=== PATIENT | male | born 1955 | race Two or more races ===

== ENCOUNTER 2019-02-10 05:01 | Inpatient (IN) | payer OTHER ==
[~2019-02-10] VITALS: Ht 180.3 cm; Wt 107.0 kg
[2019-02-10] MEDS ORDERED: ANESTHESIA TRAY IN PYXIS 1 EA TRAY MC ONE (06:28)
[2019-02-10] MEDS ORDERED: SEVOFLURANE 250 ML BOTTLE IH ONE (06:29)
[2019-02-10] MEDS ORDERED: FENTANYL PF 250MCG/5ML AMPUL ONE (06:41)
[2019-02-10] MEDS ORDERED: MIDAZOLAM HCL 2 MG/2ML VIAL ONE (06:41)
[2019-02-10] MEDS ORDERED: METOCLOPRAMIDE HCL 10 MG/2 ML VIAL ONE (06:42)
[2019-02-10] MEDS ORDERED: FAMOTIDINE/PF INJ 20 MG/2 ML VIAL IV ONE (06:42)
[2019-02-10] MEDS ORDERED: ROCURONIUM BROMIDE 50 MG/5 ML ONE (06:43)
[2019-02-10] MEDS ORDERED: MEPERIDINE HCL/PF 100 MG/ML DISP.SYRIN ONE (07:03)
[2019-02-10] MEDS ORDERED: BACITRACIN 50000 UNITS/VIAL ONE (08:08)
[2019-02-10] MEDS ORDERED: TRANEXAMIC ACID 1,000 MG in IV NS 0.9% 50 ML IV ONE ×2 (08:30→09:00)
[2019-02-10] MEDS ORDERED: FENTANYL PF 100MCG/2ML AMPUL ONE (09:29)
--- NOTE | 2019-02-10 10:05 | NUR ---
RN MSN OPENING NOTES Received patient on 2 L o2 nasal cannula with no sob or ventilatory distress noted. Patient is alert, awake and oriented. NS 0.9% IV fluids at 75 mL/hour and is flowing well. Patient states that he is not in pain, patient is lying down comfortably with no signs of pain. Vital signs WNL. Patient's call light within reach, all safety measures in place.
[2019-02-10] MEDS ORDERED: oxyCODONE/APAP (5/325 MG) 1 UDTAB TABLET PO PRN ×2 (12:00)
[2019-02-10] MEDS ORDERED: MORPHINE SULFATE INJ 4 MG/ML DISP.SYRIN IV PRN (12:00)
[2019-02-10] MEDS ORDERED: IV NS 0.9% 1,000 ML IV PRN (12:04)
[2019-02-10] MEDS ORDERED: ZOLPIDEM TARTRATE 5 MG TABLET PO PRN (12:30)
[2019-02-10] MEDS ORDERED: ACETAMINOPHEN 325 MG TABLET PO PRN (12:30)
[2019-02-10] MEDS ORDERED: ONDANSETRON HCL/PF 4 MG/2 ML VIAL IVP PRN (12:30)
[2019-02-10] MEDS ORDERED: DEXTROSE 50%-WATER 50 ML DISP.SYRIN IV PRN (12:30)
[2019-02-10] MEDS ORDERED: CLONIDINE HCL 0.1 MG TABLET PO PRN (12:30)
[2019-02-10] MEDS ORDERED: MAG HYDROX/AL HYDROX/SIMETH 30 ML UDC PO PRN (12:30)
[2019-02-10] MEDS ORDERED: INSULIN REGULAR, HUMAN 100 UNIT/ML 3 ML VIAL SQ PRN (12:30)
[2019-02-10] MEDS ORDERED: MAGNESIUM HYDROXIDE 30 ML UDC PO PRN (12:30)
[2019-02-10] MEDS ORDERED: PIOG30TA10 PO (13:24)
[2019-02-10] MEDS ORDERED: ASPI-605 PO (13:24)
[2019-02-10] MEDS ORDERED: DULO30CA2 PO (13:24)
[2019-02-10] MEDS ORDERED: SEMA0.25 SQ (13:24)
[2019-02-10] MEDS ORDERED: OMEP20CA10 PO (13:24)
[2019-02-10] MEDS ORDERED: BACL10TA PO (13:24)
[2019-02-10] MEDS ORDERED: LOSA100T31 PO (13:24)
[2019-02-10] MEDS ORDERED: FURO20TA4 PO ×2 (13:24→13:34)
[2019-02-10] MEDS ORDERED: FENO145T35 PO (13:24)
[2019-02-10] MEDS ORDERED: POTA10TA15 PO (13:24)
[2019-02-10] MEDS ORDERED: GLIP5TAB13 PO (13:24)
[2019-02-10] MEDS ORDERED: POTA20TA83 PO (13:33)
[2019-02-10] MEDS ORDERED: FURO40TA5 PO (13:33)
[2019-02-10 15:53] VITALS: BP 161/79
[2019-02-10] MEDS: ANCEF 1 GM/50 ML D5W IV SCH ×4 (16:04→23:12)
[2019-02-10] MEDS: LOSARTAN POTASSIUM 50 MG TABLET PO SCH (16:09)
[2019-02-10 16:36] LABS: CALCIUM, SERUM 8.6 mg/dL (8.5-10.1); CREATININE 1.3 mg/dL (0.6-1.3); POTASSIUM 4.5 mmol/L (3.5-5.1)
[2019-02-10] MEDS: BLOOD SUGAR DIAGNOSTIC 1 EACH STRIP IN SCH ×2 (17:45→22:15)
[2019-02-10] MEDS ORDERED: ENOXAPARIN SODIUM 40 MG/0.4 ML DISP.SYRIN SQ SCH (18:00)
--- NOTE | 2019-02-10 18:54 | NUR ---
RN MS CLOSING NOTES Patient remains on and off 2 L o2 nasal cannula. Patient is seen walking around the unit. Patient stated that he was not in pain all shift and never asked for a pain medication. Patient's call light within reach and safety measures in place.
--- NOTE | 2019-02-10 19:50 | NUR ---
MS/RN OPENING NOTES RECEIVED PATIENT IN BED, AWAKE, ALERT X3, ABLE TO VERBALIZE NEEDS, DENIES PAIN, NO GUARDING OR GRIMACE, WITH LEFT SHOULDER BRACE, HAD ORIF OF LEFT SHOULDER TODAY WITH SARAH NGUYEN/ USES URINAL BUT ABLE TO AMBULATE WITH ASSIST. WILL MONITOR, BED LOCKED, CALL LIGHTS WITHIN REACH.
[2019-02-10 19:58] VITALS: BP 129/74
[2019-02-10 20:00] VITALS: BP 129/74
[2019-02-11] MEDS: BLOOD SUGAR DIAGNOSTIC 1 EACH STRIP IN SCH (05:33)
--- NOTE | 2019-02-11 05:43 | NUR ---
MS/RN NOTES MRSA NARES SWABBED DONE. PATIENT TOLERATED PROCEDURE. PATIENT REQUESTED TO CHECK BLOOD SUGAR AT 147 , HAD A JELLO DETECTIVE CHIEF ,AMBULATORY ABLE TO WALK IN THE HALLWAY. , DENIES PAIN.
--- NOTE | 2019-02-11 06:53 | NUR ---
314-2 MS/RN NOTES PATIENT ALERT, ORIENTED X3, ABLE TO VERBNALIZE NEEDS AT ALL TIMED, MOTIVATED TO SELF CARE, ON PAIN MONITORING. SLEPT INTERMITENTLY, KEPT COMFORTABLE, ATTENDED TO NEEDS. CALL LIGHTS WITIN REACH, BED LOCKED, WILL MONITOR AND ENDORSE TO AM RN FOR SHARON.
--- NOTE | 2019-02-11 07:35 | NUR ---
RN MS OPENING NOTES Patient received on room air, no sob or ventilatory distress noted. Patients vital sign remains stable. Patient a/o x4, able to ambulate to chair and to bed without help. IVF remains at 75 ml/hour. Patient states that he has no pain at this time. Call light within reach, safety measures in place.
[2019-02-11 08:00] VITALS: BP 116/82
[2019-02-11 08:18] LABS: BASOPHILS # (AUTO) 0.1 /CMM (0.0-0.2); EOSINOPHILS % (AUTO) 2.2 % (0.0-6.0); HEMATOCRIT 43 % (39-51); HEMOGLOBIN 14.8 g/dL (13.5-17.5); LYMPHOCYTES # (AUTO) 1.5 /CMM (0.8-4.8); LYMPHOCYTES % (AUTO) 22.2 % (20.0-44.0); MEAN CORPUSCULAR HGB CONC 35 g/dl (31.0-36.0); MEAN CORPUSCULAR VOLUME 84 fL (80-96); MONOCYTES # (AUTO) 0.7 /CMM (0.1-1.30); MONOCYTES % (AUTO) 10.9 % (2.0-12.0); NEUTROPHILS # (AUTO) 4.3 /CMM (1.8-8.9); NEUTROPHILS % (AUTO) 63.7 % (43.0-81.0); PLATELET COUNT (AUTO) 247 /CMM (150-450); RED BLOOD CELL COUNT(AUTO) 5.09 MIL/uL (4.5-6.0); WHITE BLOOD COUNT (AUTO) 6.7 K/uL (4.3-11.0)
[2019-02-11 08:25] LABS: ALBUMIN 3.5 g/dL (3.4-5.0); BILIRUBIN,TOTAL 0.7 mg/dL (0.2-1.0); CALCIUM, SERUM 9.3 mg/dL (8.5-10.1); CREATININE 1.1 mg/dL (0.6-1.3); MAGNESIUM 1.9 mg/dL (1.8-2.4); PHOSPHORUS 2.8 mg/dL (2.5-4.9); POTASSIUM 3.8 mmol/L (3.5-5.1)
[2019-02-11 08:47] VITALS: BP 116/82
[2019-02-11] MEDS: LOSARTAN POTASSIUM 50 MG TABLET PO SCH (08:47)
[2019-02-11] MEDS: ANCEF 1 GM/50 ML D5W IV SCH ×2 (08:51)
[2019-02-11] MEDS ORDERED: BACLOFEN (10 MG) 10 MG TABLET PO SCH (09:00)
[2019-02-11] MEDS ORDERED: ASPIRIN EC 81 MG TABLET.DR PO SCH (09:00)
[2019-02-11] MEDS ORDERED: DULOXETINE HCL 30 MG CAPSULE.DR PO SCH (09:00)
[2019-02-11] MEDS ORDERED: FUROSEMIDE 20 MG TABLET PO SCH (09:00)
[2019-02-11] MEDS ORDERED: FENOFIBRATE NANOCRYS (145 MG) 145 MG TABLET PO SCH (09:00)
--- NOTE | 2019-02-11 14:38 | NUR ---
RN MSN CLOSING NOTES Patient is discharged with no sob or ventilatory distress noted. Patients vital sign stable, patient was picked up by his friend. Patient was free of pain when he left. All paperworks given to him, and he had no concerns or any other questions regarding his care in [place].
== END 2019-02-11 11:20 | disposition home or self-care (01) | DRG 483 ==
LOC: DS 05:01 → MED 10:30
PROVIDERS: ADMIT Nurse Practitioner Acute Care; ATTEND Student in an Organized Health Care Education/Training Program
PROC: 0RRK0J6 Replacement of Left Shoulder Joint with Synthetic Substitute, Humeral Surface, Open Approach (ICD-10-PCS; principal; 2019-02-10)
PROC: 0RPK0JZ Removal of Synthetic Substitute from Left Shoulder Joint, Open Approach (ICD-10-PCS; principal; 2019-02-10)
DX: T84.028A Dislocation of other internal joint prosthesis, initial encounter (principal); Y83.9 Surgical procedure, unspecified as the cause of abnormal reaction of the patient, or of later complication, without mention of misadventure at the time of the procedure; Y92.009 Unspecified place in unspecified non-institutional (private) residence as the place of occurrence of the external cause; I10 Essential (primary) hypertension; E11.9 Type 2 diabetes mellitus without complications; K21.9 Gastro-esophageal reflux disease without esophagitis; Z87.442 Personal history of urinary calculi; E66.9 Obesity, unspecified; Z68.32 Body mass index [BMI] 32.0-32.9, adult
CPT/HCPCS: 36415; 73020; 80048-TC; 80053-TC; 80061-TC; 82962-TC; 83735-TC; 84100-TC; 85025-TC; 86850-TC; 86921-TC; 87081-TC; A4216; A4565; A6209; A6402; G0378; J0690; J1650; J1815; J2175; J2250; J2405; J2704; J2710; J2765; J3010; J3490; J7030; J7060

== ENCOUNTER 2022-05-17 09:18 | Outpatient (CLI) | payer MEDICARE, OTHER ==
[~2022-05-17 09:18] MED LIST: ASPI-605 PO; BACL10TA PO; DULO30CA2 PO; FENO145T21 PO; FURO20TA4 PO; GLIP5TAB13 PO; LOSA100T31 PO; OMEP20CA15 PO; PIOG30TA10 PO; POTA20TA83 PO; SEMA0.25 SQ
== END 2022-05-17 23:59 | disposition home or self-care (01) ==
LOC: LAB 09:18
PROVIDERS: ATTEND Specialist
DX: Z01.812 Encounter for preprocedural laboratory examination (principal); Z20.822 Contact with and (suspected) exposure to COVID-19
CPT/HCPCS: C9803; U0003